=== PATIENT | male | born 1975 | race Caucasian/White ===

== ENCOUNTER → 2024-05-18 | Day surgery (SDC) | payer BC ==
[~2024-05-18] MED LIST: Lactated Ringers 1,000 ML IV ONE; Midazolam 1 MG/ML 2 ML SDV IV ONE; Propofol 200 MG/20 ML SDV IV ONE; Sodium Chloride 0.9% 10 ML Syringe FLUSH PRN; fentaNYL 100 MCG/2 ML SDV IV ONE
[2024-05-18] MEDS: Simethicone Drops 40 MG/0.6 ML 30 ML Bottle ONE (07:52)
[2024-05-18] MEDS: Lactated Ringers 1,000 ML IV SCH (08:00)
[2024-05-18 10:48] VITALS: BP 120/76; PULSE 72
== END ==
LOC: FB.SDS 07:26
PROVIDERS: ATTEND Surgery
DX: Z12.11 Encounter for screening for malignant neoplasm of colon (principal); E78.00 Pure hypercholesterolemia, unspecified; G47.33 Obstructive sleep apnea (adult) (pediatric); I10 Essential (primary) hypertension; F41.9 Anxiety disorder, unspecified; E11.9 Type 2 diabetes mellitus without complications; E66.9 Obesity, unspecified; Z86.010 Personal history of colon polyps; Z79.899 Other long term (current) drug therapy; Z79.82 Long term (current) use of aspirin; Z79.84 Long term (current) use of oral hypoglycemic drugs; Z68.34 Body mass index [BMI] 34.0-34.9, adult
CPT/HCPCS: 45378; 82947; A9270; J2250; J2704; J3010; J7120